=== PATIENT | female | born 1970 | race Caucasian/White ===

== ENCOUNTER 2016-08-23 06:50 | Day surgery (SDC) | payer OTHER ==
[~2016-08-23] VITALS: Ht 167.6 cm; Wt 80.7 kg
[~2016-08-23 06:50] MED LIST: MOTRIN800 MG PO
[2016-08-23 07:34] VITALS: BP 102/67
[2016-08-23] MEDS ORDERED: MOTRIN800 MG PO (07:59)
[2016-08-23] MEDS ORDERED: VICODIN 5-3001 EACH PO (07:59)
[2016-08-23 08:53] LABS: AMPHETAMINES QUANT VALUE 0 NG/ML; BARBITUATES QUANT VALUE 0 NG/ML; BENZODIAZEPINES QUANT VALUE 0 NG/ML; BENZODIAZEPINES, URINE SCREEN Negative (200 ng/mL); OPIATES QUANTITATIVE VALUE 0 NG/ML; PHENCYCLIDINE QUANT VALUE 0 NG/ML
[2016-08-23 11:01] VITALS: BP 121/58
[2016-08-23 11:44] VITALS: BP 121/58
== END 2016-08-23 11:47 | disposition home or self-care (01) ==
LOC: SDC 06:50
PROVIDERS: Obstetrics & Gynecology
PROC: 0UDB8ZZ Extraction of Endometrium, Via Natural or Artificial Opening Endoscopic (ICD-10-PCS; principal; 2016-08-23)
PROC: 0U5B8ZZ Destruction of Endometrium, Via Natural or Artificial Opening Endoscopic (ICD-10-PCS; principal; 2016-08-23)
DX: N93.8 Other specified abnormal uterine and vaginal bleeding (principal); J45.909 Unspecified asthma, uncomplicated; K21.9 Gastro-esophageal reflux disease without esophagitis; F17.200 Nicotine dependence, unspecified, uncomplicated
CPT/HCPCS: 88305; J0131; J1100; J1170; J1885; J2250; J2405; J2765; J3010